=== PATIENT | male | born 1995 | race Caucasian/White ===

== ENCOUNTER 2024-03-16 17:10 | Emergency (ER) | payer SELFPAY ==
[2024-03-16] MEDS ORDERED: LIDOCAINE HCL 2% (20ML MULTI-DOSE VIAL) ONE (17:15)
[2024-03-16 17:22] VITALS: BP 148/84; PULSE 82; RESP 18; TEMP 98.4; BMI 32.1
[2024-03-16] MEDS: LIDOCAINE HCL 2% (20ML MULTI-DOSE VIAL) SQ ONE (17:30)
[2024-03-16] MEDS ORDERED: DIPHTH,PERTUSS(ACELL),TET 0.5 ML DISP.SYRIN IM ONE (18:02)
[2024-03-16] MEDS: DIPHTH,PERTUSS(ACELL),TET 0.5 ML DISP.SYRIN IM ONE (18:56)
[2024-03-16] MEDS ORDERED: CEPHALEXIN MONOHYDRATE 500 MG CAPSULE (UD) ONE (19:58)
[2024-03-16] MEDS: CEPHALEXIN MONOHYDRATE 500 MG CAPSULE (UD) PO ONE (20:01)
== END 2024-03-16 20:08 | disposition home or self-care (01) ==
LOC: FER 17:10
PROC: 3E013BZ Introduction of Anesthetic Agent into Subcutaneous Tissue, Percutaneous Approach (ICD-10-PCS; principal; 2024-03-16)
PROC: 3E0234Z Introduction of Serum, Toxoid and Vaccine into Muscle, Percutaneous Approach (ICD-10-PCS; 2024-03-16)
DX: S61.011A Laceration without foreign body of right thumb without damage to nail, initial encounter (principal); S60.410A Abrasion of right index finger, initial encounter; Z23 Encounter for immunization; W31.2XXA Contact with powered woodworking and forming machines, initial encounter
CPT/HCPCS: 73140-TC-RT-FY; 90715; 99284-25